=== PATIENT | male | born 1975 | race Caucasian/White ===

== ENCOUNTER 2017-11-16 21:40 | Emergency (ER) | payer BC, OTHER ==
--- NOTE | 2017-11-16 22:48 | EDPHY ---
H & P Stated Complaint: Upper back spasms and pain was seen at another hospital today Time Seen by Provider: 11/16/17 22:31 HPI/ROS: HPI The patient presents with right-sided chest and back pain which has been present for the last several days. He was involved in an accident at work in which he fell 5 ft off of a vehicle landing on his right side on November 13. He has been evaluated by worker's Comp doctor today who performed chest x-ray with rib series which was unremarkable. The patient was thought to have muscle spasm and possible rib contusions and was prescribed Flexeril and instructed to take Naprosyn. The patient tells me that he continues to have a spasm like pain throughout his right chest and it is severe. He did take 2 doses of Flexeril and CBD today. He did not take any anti-inflammatories. He does not have any shortness of breath. His pain is worse with changes in position. He does not have any abdominal pain or vomiting. REVIEW OF SYSTEMS Constitutional: No fever, no chills. Eyes: No discharge. ENT: No sore throat. Cardiovascular: No chest pain, no palpitations. Respiratory: No cough, no shortness of breath. Gastrointestinal: No abdominal pain, no vomiting. Genitourinary: No hematuria. Musculoskeletal: No back pain. Skin: No rashes. Neurological: No headache. 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 PHYSICAL General Appearance: Alert, no distress Eyes: Pupils equal and round no pallor or injection ENT, Mouth: Mucous membranes moist Respiratory: There are no retractions, lungs are clear to auscultation Cardiovascular: Regular rate and rhythm Chest wall: There is tenderness throughout his right posterior in anterior chest at the lower rib segments, there is no external signs of trauma Gastrointestinal: Abdomen is soft and non-tender, no masses, bowel sounds normal Neurological: A&O, moves all extremities Skin: Warm and dry, no rashes Musculoskeletal: Neck is supple non tender Extremities: symmetrical, full range of motion Psychiatric: Patient is oriented X 3, there is no agitation Source: Patient, Old records Exam Limitations: No limitations - Personal History Current Tetanus/Diphtheria Vaccine: Yes Current Tetanus Diphtheria and Acellular Pertussis (TDAP): Yes - Medical/Surgical History Hx Asthma: No Hx Chronic Respiratory Disease: No Hx Diabetes: No Hx Cardiac Disease: No Hx Renal Disease: No Hx Cirrhosis: No Hx Alcoholism: No Hx HIV/AIDS: No Hx Splenectomy or Spleen Trauma: No Other PMH: Surgery left shoulder exploratory . than had MRI . and found herniated t4 disc - Social History Smoking Status: Current every day smoker Constitutional: Initial Vital Signs Temperature (C) 36.6 C 11/16/17 21:51 Heart Rate 81 11/16/17 21:51 Respiratory Rate 16 11/16/17 21:51 Blood Pressure 134/83 H 11/16/17 21:51 O2 Sat (%) 95 11/16/17 21:51 O2 Delivery Mode Room Air Allergies/Adverse Reactions: Sulfa (Sulfonamide Antibiotics) Allergy (Verified 11/16/17 21:54) sulfa Allergy (Uncoded 12/31/13 15:15) Home Medications: Medication Instructions Recorded Cyclobenzaprine 11/16/17 Medical Decision Making Differential Diagnosis: 42-year-old male, work injury on November 13, falling from 5 ft now with continued right-sided chest pain. He has been evaluated earlier today, I obtained records in [facility]. He had chest x-ray with rib series performed which was unremarkable. I do not see the need to repeat any testing currently. It seems that he is experiencing some muscle spasm likely related to underlying inflammation. He does not have any shortness of breath. I have given him a Lidoderm patch here. I have instructed him to take Naprosyn with Tylenol around the clock with Flexeril as needed and follow up with his worker's Comp doctor as already planned. Departure - Departure Disposition: Home, Routine, Self-Care Clinical Impression: Chest wall pain Condition: Good Instructions: Chest Wall Pain (ED) Additional Instructions: Please return to the emergency department if your worse in any way. You should take Aleve 500 mg twice a day. You can take Tylenol 1000 mg every 6 hr. You can take her Flexeril on top of this if the pain is severe. I recommend ice packs or heat packs to treat the pain. Referrals: NONE *PRIMARY CARE P,. [Primary Care Provider] - As per Instructions
[2017-11-16] MEDS ORDERED: LIDOCAINE 5% 1 EA PATCH TD ONE (23:00)
[2017-11-16 23:14] VITALS: BP 138/62; PULSE 84; RESP 20; TEMP 98.4; O2SAT 94
[2017-11-16] MEDS ORDERED: LIDOCAINE 5% 1 EA PATCH TD SCH (23:15)
[2017-11-17] MEDS ORDERED: LIDOCAINE 5% 1 EA PATCH TD SCH (09:00)
[2017-11-17] MEDS ORDERED: PATCH REMOVAL 1 EA PATCH TD SCH ×2 (21:00)
== END 2017-11-16 23:15 | disposition home or self-care (01) ==
DX: R07.89 Other chest pain (principal); F17.200 Nicotine dependence, unspecified, uncomplicated